=== PATIENT | male | born 1955 | race Caucasian/White ===

== ENCOUNTER 2019-08-31 10:32 | Observation (INO) | payer BC, OTHER ==
[~2019-08-31] VITALS: Ht 188 cm; Wt 85.3 kg
[2019-08-31 12:36] LABS: BASOPHILS % (AUTO) 0.4 % (0.0-5.0); EOSINOPHILS % (AUTO) 2.5 % (0.0-8.0); HEMATOCRIT 42.3 % (42-54); LYMPHOCYTES % (AUTO) 17.2 % (21.0-51.0); MEAN CORPUSCULAR HEMOGLOBIN 32.6 pg (27.0-33.0); MEAN CORPUSCULAR HGB CONC 34.5 g/dL (32.0-36.0); MEAN CORPUSCULAR VOLUME 94.6 fL (79-99); MONOCYTES % (AUTO) 8.7 % (3.0-13.0); NEUTROPHILS % (AUTO) 71.2 % (40.0-77.0); PLATELET COUNT (AUTO) 166 K/uL (130-400); RED BLOOD CELL COUNT(AUTO) 4.48 MIL/uL (4.50-6.20); RED CELL DISTRIBUTION WIDTH 13.1 % (11.0-15.5); WHITE BLOOD COUNT (AUTO) 6.8 K/uL (4.8-10.8)
[2019-08-31 12:46] LABS: CREATININE 1.1 mg/dL (0.5-1.5); POTASSIUM 4.3 mmol/L (3.5-5.1)
[2019-08-31 12:50] LABS: INR 0.96 (0.85-1.15); PARTIAL THROMBOPLASTIN TIME 26.6 SEC (26.3-35.5); PROTHROMBIN TIME 10.1 SEC (9.6-11.6)
[2019-08-31 12:59] LABS: ALBUMIN 3.4 g/dL (3.5-5.0); BILIRUBIN,TOTAL 0.6 mg/dL (0.2-1.0); TOTAL PROTEIN, SERUM 7.6 g/dL (6.0-8.3)
[2019-08-31] MEDS ORDERED: ENOXAPARIN SODIUM 40 MG/0.4 ML SYRINGE SQ ONE (13:18)
[2019-08-31] MEDS ORDERED: ONDANSETRON HCL 4 MG/2 ML VIAL IVP PRN (14:45)
[2019-08-31] MEDS ORDERED: SODIUM CHLORIDE 0.9% 10 ML VIAL IVP SCH (14:45)
[2019-08-31] MEDS ORDERED: HEPARIN 25000 UNITS/250 ML D5W 250 ML IV PRN (14:45)
[2019-08-31] MEDS ORDERED: ACETAMINOPHEN 325 MG TAB PO PRN ×2 (14:45)
[2019-08-31] MEDS ORDERED: HEPARIN 25000 UNITS/250 ML D5W 250 ML IV ONE (14:46)
[2019-08-31 19:00] VITALS: BP 138/77
[2019-08-31] MEDS ORDERED: SILD100T PO (22:02)
[2019-08-31] MEDS ORDERED: TADA5TAB PO (22:02)
[2019-08-31] MEDS ORDERED: BUPR150T3 PO (22:02)
[2019-08-31 23:25] VITALS: BP 122/76
[2019-09-01 04:00] VITALS: BP 118/69
[2019-09-01] MEDS ORDERED: TADALAFIL 5 MG PO SCH (07:15)
[2019-09-01] MEDS ORDERED: NON-FORMULARY MEDICATION 1 EACH (Sildenafil Citrate (Viagra) 100 MG) PO SCH (07:15)
[2019-09-01 07:45] VITALS: BP 130/77
--- NOTE | 2019-09-01 08:00 | NUR ---
AM ASSESSMENT PT SITTING IN BED. SPOUSE @ BEDSIDE. A/O X 3. FLAT AFFECT. NO SOB. NO DISTRESS NOTED. DENIES CHEST PAIN OR DISCOMFORT. DENIES PALPITATIONS. TELE: SR 80s. DENIES N/V AND/OR DIARRHEA. HEPARIN INFUSING @ 1500 UNITS/HR. THERAPEUTIC PTT, DAILY PTT. BR W/BRP. INSTRUCTED TO CALL FOR ASSISTANCE. CALL JAY W/IN REACH.
[2019-09-01] MEDS ORDERED: BUPROPION HCL 150 MG TABLET.SA PO SCH (09:00)
[2019-09-01 11:50] VITALS: BP 112/66
[2019-09-01] MEDS ORDERED: IOHEXOL-350 75 ML VIAL IV ONE (12:38)
--- NOTE | 2019-09-01 14:13 | NUR ---
MD NOTIFICATION DR HESTER NOTIFIED PT (+) LT PE PER CT ANGIO CHEST DONE THIS AM. ORDERS RECEIVED & ENTERED.
--- NOTE | 2019-09-01 14:15 | NUR ---
MD VISIT DR HESTER IN TO SEE PT & PT'S SPOUSE. PT'S STATUS & PLAN OF CARE REVIEWED BY .
[2019-09-01 15:01] VITALS: BP 122/71
[2019-09-01] MEDS ORDERED: APIXABAN 5 MG TABLET PO ONE ×2 (15:12→19:06)
[2019-09-01] MEDS ORDERED: APIXABAN 5 MG TABLET PO SCH ×2 (16:39→21:00)
[2019-09-01] MEDS ORDERED: APIX5TAB PO ×2 (17:15)
[2019-09-01] MEDS ORDERED: PHARMACY COMMUNICATION MISC SCH (18:45)
--- NOTE | 2019-09-01 19:00 | NUR ---
DISCHARGE VERBAL & WRITTEN DISCHARGE INSTRUCTIONS REVIEWED & GIVEN TO PT & SPOUSE. QUESTIONS ENCOURAGED & CLARIFIED. PROPER CARE & MGT OF DVT & PE REVIEWED. NEW PRESCRIBED MEDICATIONS REVIEWED. PT INFORMED PRESCRIPTION TRANSMITTED TO PHARMACY IN FILE. F/U APPT INFO HIGHLIGHTED ON DC PAPERWORK. TELE ALBERT REMOVED. IV DISCONTINUED. PT & SPOUSE TO GATHER PERSONAL BELONGINGS. WILL NOTIFY STAFF WHEN READY TO BE TAKEN TO PRIVATE VEHICLE.
--- NOTE | 2019-09-01 19:20 | NUR ---
DISCHARGE PT TAKEN TO PRIVATE VEHICLE VIA WC BY JALEEL ARREAGA, ACCOMPANIED BY SPOUSE. NO DISTRESS NOTED.
[2019-09-02] MEDS ORDERED: APIXABAN 5 MG TABLET PO SCH (08:00)
== END 2019-09-01 19:20 | disposition home or self-care (01) ==
LOC: EDH 10:32 → EDHIP 14:00 → 2AH 18:09
PROVIDERS: ADMIT Internal Medicine; ATTEND Internal Medicine
DX: I82.432 Acute embolism and thrombosis of left popliteal vein (principal); I82.412 Acute embolism and thrombosis of left femoral vein; R06.00 Dyspnea, unspecified; F32.9 Major depressive disorder, single episode, unspecified; F17.290 Nicotine dependence, other tobacco product, uncomplicated; Z90.79 Acquired absence of other genital organ(s); Z85.46 Personal history of malignant neoplasm of prostate; Z79.899 Other long term (current) drug therapy
CPT/HCPCS: 36415 ×2; 71275; 80053; 85025; 85610; 85730 ×4; 93971; 96365; 96366; 99284; G0378 ×25; J1644 ×2; J1650; Q9967

== ENCOUNTER → 2023-07-20 | Outpatient (CLI) | payer MEDICARE ==
[~2023-07-20] MED LIST: APIX5TAB PO; BUPR150T3 PO; IOHEXOL 350 MG/ML 100ML INFUS..BTL IV ONE; SILD100T PO; TADA5TAB PO
== END | disposition home or self-care (01) ==
LOC: RAH 08:07
PROVIDERS: ATTEND Nurse Practitioner Adult Health
DX: K44.9 Diaphragmatic hernia without obstruction or gangrene (principal); K57.90 Diverticulosis of intestine, part unspecified, without perforation or abscess without bleeding; N28.1 Cyst of kidney, acquired; R16.0 Hepatomegaly, not elsewhere classified; M47.815 Spondylosis without myelopathy or radiculopathy, thoracolumbar region; R31.9 Hematuria, unspecified
CPT/HCPCS: 74178; Q9967